=== PATIENT | female | born 1970 | race African-American/Black ===

== ENCOUNTER 2021-10-05 07:53 | Outpatient (CLI) | payer BC, SELFPAY ==
[2021-10-05 08:07] LABS: Basophils Percent Auto 0.9 % (0.2-1.2); Eosinophils Absolute Auto 0.1 K/mm3 (0-0.3); Eosinophils Percent Auto 3.1 % (0-4.4); Hematocrit 39.5 % (37.0-47.0); Immature Granulocyte Absolute 0.01 K/mm3 (0.00-0.031); Immature Granulocyte Percent A 0.2 % (0-0.5); Lymphocytes Percent Auto 40.1 % (18.3-44.2); Mean Corpuscular HGB Conc 32.9 g/dl (32-36); Mean Corpuscular Hemoglobin 31.9 pg (26-34); Mean Corpuscular Volume 97.1 fl (80-100); Mean Platelet Volume 9.5 fl (7.4-10.4); Monocytes Absolute Auto 0.4 K/mm3 (0.1-0.6); Monocytes Percent Auto 10.4 % (2.6-8.5); Neutrophils Absolute Auto 1.9 K/mm3 (1.3-6.7); Neutrophils Percent Auto 45.3 % (45.5-73.1); Platelet Count Result 276 k/mm3 (150-375); Red Blood Count 4.07 M/mm3 (4.2-5.4); Red Cell Distribution Width 12.1 % (11.5-14.5); White Blood Count 4.2 K/mm3 (4.5-10.0)
[2021-10-05 08:17] LABS: Alanine Aminotransferase 19 U/L (6-35); Albumin Level 4.3 g/dL (3.5-5.1); Alkaline Phosphatase 50 U/L (38-126); Anion Gap 7 mmol/L (8-16); Aspartate Amino Transferase 28 U/L (14-36); Bilirubin,Total 0.7 mg/dL (0.2-1.3); Blood Urea Nitrogen 15 mg/dL (7-17); Calcium 8.9 mg/dL (8.4-10.2); Carbon Dioxide 23 mmol/L (22-30); Chloride 109 mmol/L (98-107); Cholesterol 174 mg/dL (0-200); Estimated Glomerular Filt Rate > 60; Glucose 91 mg/dL (65-110); HDL Direct 66 mg/dL; Potassium 4.2 mmol/L (3.4-5.0); Sodium 139 mmol/L (137-145); Triglycerides 120 mg/dL (<150)
[2021-10-05 08:28] LABS: LDL Cholesterol Direct 58 mg/dL
[2021-10-05 08:47] LABS: Thyroid Stimulating Hormone 0.684 uIU/mL (0.465-4.680)
[2021-10-05 09:32] LABS: Vitamin D 25 Hydroxy 51.3 ng/mL
== END 2021-10-05 07:54 | disposition home or self-care (01) ==
LOC: ANHLAB 07:56
PROVIDERS: PCP Internal Medicine; Visit Provider Nurse Practitioner
DX: F41.9 Anxiety disorder, unspecified (principal); E66.9 Obesity, unspecified
CPT/HCPCS: 36415; 80053; 80061; 82306; 84443; 85025

== ENCOUNTER → 2022-03-15 15:51 | Outpatient (CLI) | payer BC, SELFPAY ==
--- NOTE | ~2022-03-15 | XR_ITS ---
EXAMINATION: XR knee RT 3V DATE: 03/15/2022 16:02 INDICATION: Right knee pain. TECHNIQUE: 3 views of right knee were obtained. COMPARISON: None. FINDINGS: Bone alignment is normal. No fracture. There is mild tricompartmental osteoarthritis. No kn ee joint effusion. IMPRESSION: 1. Mild right knee osteoarthritis. Reviewed, dictated and finalized at location [employer]
== END ==
PROVIDERS: PCP Internal Medicine; Visit Provider Internal Medicine
DX: M17.11 Unilateral primary osteoarthritis, right knee (principal)
CPT/HCPCS: 73562

== ENCOUNTER → 2022-04-10 07:13 | Outpatient (CLI) | payer BC, SELFPAY ==
--- NOTE | ~2022-04-10 | MR_ITS ---
EXAMINATION: MR knee RT wo con DATE: 04/10/2022 08:02 INDICATION: Generalized right knee pain and locking post twisting injury with palpable pop 1 month pr ior TECHNIQUE: Magnetic resonance imaging (MRI) of the right knee was performed without intravenous contr ast. Sequences included coronal PD-weighted FSE, coronal PD-weighted FS FSE, sagittal T2-weighted FS E, sagittal PD-weighted FS FSE and axial PD weighted fat saturated FSE. COMPARISON: None. FINDINGS: Medial compartment: Medial meniscus is normal. Articular cartilage is normal. Lateral compartment: Lateral meniscus is normal. Small partial-thickness chondral fissure without degenerative subchondral changes at the posterior lateral tibial plateau. Remaining articular cartilage is normal. Patellofemoral compartment: Deep chondral ulceration without degenerative subchondral changes at the superolateral aspect of the lateral trochlea. Focal chondral swelling with smooth chondral surface at the central aspect of the t rochlear groove. Additional chondral fissuring at the inferior aspect of the lateral patellar facet, deep with mild underlying cortical irregularity and minimal subarticular edema-like signal change at the inferolateral aspect of the lateral facet. Ligaments and tendons: Anterior and posterior cruciate ligaments are normal. The fibular collateral ligament complex is norm al. There is thickening and prominent increased signal of the proximal fibular collateral ligament wi th some surrounding soft tissue edema consistent with relatively recent partial tear/moderate grade s prain. The extensor mechanism is normal. The visualized medial and lateral hamstring tendons as well as the iliotibial band are normal. Fluid: Minimal right knee joint effusion. No loose osteochondral bodies identified. Osseous/other: Bone alignment is normal. No fracture. 4 mm lesion at the posterior aspect of the lateral femoral con dyle of similar signal intensity on all pulse sequences to the articular cartilage, too small to defi nitively characterize but statistically most likely to represent a small enchondroma. IMPRESSION: 1. Relatively recent partial tear/moderate grade sprain of the medial collateral ligament. 2. Mild patellofemoral osteoarthritis with small regions of moderate to high-grade chondromalacia at the lateral patellar facet and lateral trochlea. 3. Minimal osteoarthritis in the lateral compartment with small partial-thickness chondral fissure at the lateral tibial plateau. Reviewed, dictated and finalized at location L. [employer] IMPRESSION: 1. Relatively recent partial tear/moderate grade sprain of the medial collatera l ligament. 2. Mild patellofemoral osteoarthritis with small regions of moderate to high-gr doris chondromalacia at the lateral patellar facet and lateral trochlea. 3. Minimal osteoarthritis in the lateral compartment with small partial-thickne ss chondral fissure at the lateral tibial plateau.
== END ==
PROVIDERS: PCP Internal Medicine; Visit Provider Orthopaedic Surgery
DX: M23.91 Unspecified internal derangement of right knee (principal); M25.561 Pain in right knee; S83.411A Sprain of medial collateral ligament of right knee, initial encounter; M17.11 Unilateral primary osteoarthritis, right knee; M94.261 Chondromalacia, right knee; T14.90XA Injury, unspecified, initial encounter
CPT/HCPCS: 73721